=== PATIENT | male | born 1950 | race Caucasian/White ===

== ENCOUNTER 2020-01-19 16:09 | Inpatient (IN) | payer BC, MEDICARE, OTHER ==
[~2020-01-19] VITALS: Ht 165.1 cm; Wt 81.4 kg
[2020-01-19 17:29] LABS: BASOPHILS % 0.5 % (0.0-2.0); EOSINOPHILS % 0.3 % (0.0-5.0); HEMATOCRIT. 36.8 % (42.0-52.0); HEMOGLOBIN. 12.8 g/dL (14.0-18.0); LYMPHOCYTES % 14.4 % (20.0-50.0); MEAN CORPUSCULAR HEMOGLOBIN 30.2 pg (28.0-32.0); MEAN CORPUSCULAR VOLUME 86.9 fL (80.0-94.0); MEAN PLATELET VOLUME 9.6 fl (7.4-10.4); MONOCYTES % 8.7 % (2.0-8.0); NEUTROPHILS % 76.1 % (40.0-76.0); PLATELET 183 x1000/uL (130-400); RED BLOOD CELL COUNT 4.23 mill/uL (4.7-6.1); RED CELL DISTRIBUTION WIDTH 13.6 % (11.6-14.6)
[2020-01-19 17:38] LABS: CHLORIDE 106 mEq/L (98-107); PROTHROMBIN TIME 10.8 sec (9.6-11.0)
[2020-01-19 17:42] LABS: ETHANOL BLOOD < 10 mg/dL
[2020-01-19 17:45] LABS: LDL CHOLESTEROL 109 mg/dL (5-100)
[2020-01-19] MEDS ORDERED: ASPIRIN 325MG TABLET PO ONE (18:00)
[2020-01-19 19:09] LABS: CLARITY URINE CLEAR (CLEAR); COLOR URINE YELLOW (YELLOW); KETONES URINE NEGATIVE (NEGATIVE); LEUKOCYTE ESTERASE URINE NEGATIVE (NEGATIVE); NITRITE URINE NEGATIVE (NEGATIVE); OCCULT BLOOD URINE NEGATIVE (NEGATIVE); PH URINE 5.5 (4.5-8.0); PROTEIN URINE NEGATIVE (NEGATIVE); SPECIFIC GRAVITY URINE 1.009 (1.005-1.030); UROBILINOGEN URINE 0.2 E.U./dL (0.2-1.0)
[2020-01-19 19:27] LABS: *AMPHETAMINES SCREEN URINE NEGATIVE (NEGATIVE); *BARBITURATES SCREEN URINE NEGATIVE (NEGATIVE); *BENZODIAZEPINES SCREEN URINE NEGATIVE (NEGATIVE)
[2020-01-19 19:28] LABS: *COCAINE SCREEN URINE NEGATIVE (NEGATIVE); CANNABINOID URINE SCREEN NEGATIVE (NEGATIVE); METHADONE URINE SCREEN NEGATIVE (NEGATIVE); OPIATES URINE SCREEN NEGATIVE (NEGATIVE); PHENCYCLIDINE URINE SCREEN NEGATIVE (NEGATIVE)
[2020-01-19] MEDS ORDERED: NA PHOS,M-B/NA PHOS,DI-BA ENEMA 118ML PR PRN (21:45)
[2020-01-19] MEDS ORDERED: CLONIDINE 0.1MG TABLET PO PRN (21:45)
[2020-01-19] MEDS ORDERED: DOCUSATE SODIUM 100MG CAPSULE PO PRN (21:45)
[2020-01-19] MEDS ORDERED: ACETAMINOPHEN 325MG TABLET PO PRN ×2 (21:45)
[2020-01-19] MEDS ORDERED: MAGNESIUM/ALUMINUM HYDROXIDE/SIMETHICONE 30ML UDC PO PRN (21:45)
[2020-01-19] MEDS ORDERED: ZOLPIDEM TARTRATE 5MG TABLET PO PRN (21:45)
[2020-01-19] MEDS ORDERED: IPRATROPIUM/ALBUTEROL 0.5-3(2.5)MG/3ML NEB NEB PRN (21:45)
[2020-01-19] MEDS ORDERED: NITROGLYCERIN 0.4MG TABLET SL SL PRN (21:45)
[2020-01-19] MEDS ORDERED: ONDANSETRON HCL 4MG/2ML INJ IV PRN (21:45)
[2020-01-19] MEDS ORDERED: GUAIFENESIN 200MG/10ML SUGAR FREE UDC PO PRN (21:45)
[2020-01-19 22:00] VITALS: BP 160/80
[2020-01-19] MEDS ORDERED: LOSA100T32 MT (22:05)
[2020-01-19] MEDS ORDERED: CYCL5TAB MT (22:05)
[2020-01-19] MEDS ORDERED: METO-539 MT (22:05)
[2020-01-19] MEDS ORDERED: OMEP20CA14 MT (22:05)
[2020-01-19] MEDS ORDERED: LIP40 MT (22:05)
[2020-01-19] MEDS ORDERED: ASPI-1497 MT (22:05)
[2020-01-19 22:06] VITALS: BP 164/80
[2020-01-19] MEDS: AMLODIPINE 10MG TABLET PO SCH (22:36)
[2020-01-20] VITALS: BP 142/60
[2020-01-20 00:02] LABS: CREATINE KINASE 196 IU/L (39-308)
[2020-01-20 00:04] LABS: CREATINE KINASE MB FRACTION < 1.0 ng/mL (0.5-3.6)
[2020-01-20 04:00] VITALS: BP 135/60
[2020-01-20 07:16] LABS: BASOPHILS % 0.7 % (0.0-2.0); EOSINOPHILS % 1.6 % (0.0-5.0); HEMATOCRIT. 35.5 % (42.0-52.0); HEMOGLOBIN. 12.2 g/dL (14.0-18.0); LYMPHOCYTES % 21.2 % (20.0-50.0); MEAN CORPUSCULAR HEMOGLOBIN 29.9 pg (28.0-32.0); MEAN CORPUSCULAR VOLUME 86.8 fL (80.0-94.0); MEAN PLATELET VOLUME 9.8 fl (7.4-10.4); MONOCYTES % 10.7 % (2.0-8.0); NEUTROPHILS % 65.8 % (40.0-76.0); PLATELET 165 x1000/uL (130-400); RED BLOOD CELL COUNT 4.08 mill/uL (4.7-6.1); RED CELL DISTRIBUTION WIDTH 13.4 % (11.6-14.6)
[2020-01-20 07:33] LABS: CHLORIDE 106 mEq/L (98-107)
[2020-01-20 07:42] LABS: PHOSPHORUS 3.6 mg/dL (2.5-4.9)
[2020-01-20 07:43] LABS: CREATINE KINASE 176 IU/L (39-308); CREATINE KINASE MB FRACTION < 1.0 ng/mL (0.5-3.6); LDL CHOLESTEROL 104 mg/dL (5-100)
[2020-01-20 07:44] LABS: HDL CHOLESTEROL 43 mg/dL (40-59)
[2020-01-20 08:00] VITALS: BP 142/62
[2020-01-20] MEDS ORDERED: FAMOTIDINE 20MG TABLET PO SCH (09:00)
[2020-01-20] MEDS ORDERED: ASCORBIC ACID 500 MG TABLET PO SCH (09:00)
[2020-01-20] MEDS ORDERED: ZINC SULFATE 220 MG ( 50 ) CAPSULE PO SCH (09:00)
[2020-01-20] MEDS ORDERED: ASPIRIN 325MG EC TABLET PO SCH (09:00)
[2020-01-20] MEDS: AMLODIPINE 10MG TABLET PO SCH (09:01)
[2020-01-20] MEDS ORDERED: DEXTROSE 50% WATER 50ML SYRINGE IV PRN (09:15)
[2020-01-20 10:44] LABS: TOTAL IRON BINDING CAPACITY 255 ug/dL (250-450)
[2020-01-20 12:00] VITALS: BP 141/65
[2020-01-20] MEDS ORDERED: BLOOD SUGAR DIAGNOSTIC STRIP TEST SCH (12:10)
[2020-01-20] MEDS ORDERED: INSULIN LISPRO 100 UNITS/ML SUBCUT SCH (12:40)
[2020-01-20 14:27] LABS: FOLIC ACID (FOLATE) SERUM > 20.00 ng/mL (>5.38)
[2020-01-20 14:32] LABS: VITAMIN B12 SERUM 664 pg/mL (211-911)
[2020-01-20] MEDS ORDERED: CLOPIDOGREL 75MG TABLET PO SCH (15:00)
[2020-01-20 16:00] VITALS: BP 141/65
[2020-01-20] MEDS ORDERED: ATORVASTATIN CALCIUM 10MG TABLET PO SCH (21:00)
[2020-01-20] MEDS ORDERED: ATORVASTATIN CALCIUM 40MG TABLET PO SCH (21:00)
[2020-01-20] MEDS ORDERED: ENOXAPARIN 40MG/0.4ML SYR SUBCUT SCH (23:00)
[2020-01-21] MEDS ORDERED: ASPIRIN 81MG TABLET PO SCH (09:00)
== END 2020-01-20 17:52 | disposition home or self-care (01) | DRG 64 ==
LOC: ER 16:09 → 8WST 17:59 → EDBEDREQ 18:03 → EDBEDREQSVC 18:03 → ENRESERV 19:55
PROVIDERS: ADMIT Internal Medicine; ATTEND Internal Medicine
DX: I63.9 Cerebral infarction, unspecified (principal); G92 Toxic encephalopathy; E78.5 Hyperlipidemia, unspecified; I10 Essential (primary) hypertension; R29.810 Facial weakness; E11.65 Type 2 diabetes mellitus with hyperglycemia; D64.9 Anemia, unspecified; R74.01 Elevation of levels of liver transaminase levels; E78.00 Pure hypercholesterolemia, unspecified; Z85.46 Personal history of malignant neoplasm of prostate; Z82.49 Family history of ischemic heart disease and other diseases of the circulatory system; Z83.3 Family history of diabetes mellitus; Z79.899 Other long term (current) drug therapy; Z79.82 Long term (current) use of aspirin
CPT/HCPCS: 36415; 70551; 71045; 80053; 80061; 80305; 80320; 81003; 82550; 82553; 82607; 82746; 82962; 83036; 83540; 83550; 83721; 83735; 84100; 84484; 85025; 93005; 93306; 93880; 93970; 99285; J1815; G0480

== ENCOUNTER 2021-10-09 04:22 | Emergency (ER) | payer OTHER ==
[~2021-10-09] VITALS: Ht 165.1 cm; Wt 82.0 kg
[~2021-10-09 04:22] MED LIST: ASPI-1497 MT; CYCL5TAB MT; LIP40 MT; LOSA100T32 MT; METO-539 MT; OMEP20CA14 MT
[2021-10-09 04:48] VITALS: BP 161/77
[2021-10-09] MEDS ORDERED: MELA1TAB51 MT (08:32)
== END 2021-10-09 09:20 | disposition home or self-care (01) ==
LOC: ER 04:22
DX: F32.9 Major depressive disorder, single episode, unspecified (principal); G47.00 Insomnia, unspecified; E11.9 Type 2 diabetes mellitus without complications; I10 Essential (primary) hypertension; Z79.82 Long term (current) use of aspirin
CPT/HCPCS: 99281